=== PATIENT | female | born 1995 | race African-American/Black ===

== ENCOUNTER 2018-07-09 17:00 | Emergency (ER) | payer MEDICAID ==
[~2018-07-09] VITALS: Ht 170.2 cm; Wt 96.3 kg
[2018-07-09] MEDS ORDERED: NEXP1IMP SC (17:26)
[2018-07-09] MEDS ORDERED: IBUP-1022 PO (19:30)
[2018-07-09] MEDS ORDERED: CYCL10TA PO (19:30)
[2018-07-09 19:37] VITALS: BP 134/87
== END 2018-07-09 19:41 | disposition home or self-care (01) ==
LOC: M ED 17:00
DX: M54.12 Radiculopathy, cervical region (principal); Z79.3 Long term (current) use of hormonal contraceptives